=== PATIENT | female | born 1945 | race Caucasian/White ===

== ENCOUNTER → 2024-12-13 | Outpatient (CLI) | payer OTHER, SELFPAY ==
[2024-12-13 18:12] LABS: Barbiturate Urine NEGATIVE (< 200 ng/mL); Benzodiazepine Urine NEGATIVE (< 200 ng/mL); PCP Urine NEGATIVE (< 25 ng/mL); THC Urine NEGATIVE (< 50 ng/mL)
== END | disposition home or self-care (01) ==
LOC: LAB 15:44
PROVIDERS: PCP Nurse Practitioner Family; Referring Provider Anesthesiology; Visit Provider Anesthesiology
DX: F11.20 Opioid dependence, uncomplicated (principal)
CPT/HCPCS: 80307

== ENCOUNTER → 2024-12-20 | Outpatient (CLI) | payer OTHER, SELFPAY ==
--- NOTE | 2024-12-20 13:29 | RAD_ITS ---
PROCEDURE: LUMBAR SPINE 2 OR 3 VIEWS 12/20/2024 REASON FOR EXAM: CHECK SCS SYSTEM TECHNIQUE: Procedure Code: RADSPLL Modality: DX Procedure: LUMBAR SPINE 2 OR 3 VIEWS COMPARISON: None FINDINGS: There is a stimulator on the right with wires extending into the mid thoracic region. There is hardware in the lumbar spine at L3-4 which appears intact. There is loss of disc height at each level. There is no significant spondylolisthesis. Vascular calcifications are noted. Mineralization is normal. RAD/Lumbar Spine 2 or 3 Views IMPRESSION: There is a stimulator on the right with wires extending into the mid thoracic r egion. There is hardware in the lumbar spine at L3-4 which appears intact. There is loss of disc height at each level. Reading Location: [id number]
--- NOTE | 2024-12-20 13:29 | RAD_ITS ---
PROCEDURE: THORACIC SPINE 3 VIEWS 12/20/2024 REASON FOR EXAM: CHECK SCS SYSTEM TECHNIQUE: Procedure Code: RADSPT Modality: DX Procedure: THORACIC SPINE 3 VIEWS Four views COMPARISON: None FINDINGS: Leads of the S CS system are in satisfactory position with the tip noted at the mid T7 vertebral body. Vertebrae: Bones are demineralized. No demonstrated fracture or suspicious osseous lesion. There are bridging degenerative spurs in the thoracic spine. 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
== END | disposition home or self-care (01) ==
PROVIDERS: PCP Nurse Practitioner Family; Referring Provider Anesthesiology; Visit Provider Anesthesiology
DX: Z96.82 Presence of neurostimulator (principal)
CPT/HCPCS: 72072; 72100; 72110